=== PATIENT | male | born 1980 | race Caucasian/White ===

== ENCOUNTER 2018-05-30 16:13 | Emergency (ER) | payer OTHER ==
[2018-05-30] MEDS ORDERED: LORAZEPAM 2 MG INJ (16:54)
[2018-05-30] MEDS: LORAZEPAM 2 MG INJ IM (16:58)
[2018-05-30 17:52] LABS: ADD MAN DIFF? NO
[2018-05-30 17:56] LABS: BASOPHIL # 0.1 10^3/ul (0.0-0.1); BASOPHILS % 1.2 % (0.0-2.0); EOSINOPHILS # 0.1 10^3/ul (0.0-0.5); HEMATOCRIT 45.6 % (42.0-52.0); HEMOGLOBIN 15.8 g/dl (14.0-18.0); LYMPHOCYTES # 2.8 10^3/ul (0.8-2.9); MEAN CORPUSCULAR HEMOGLOBIN 29.3 pg (29.0-33.0); MEAN CORPUSCULAR HGB CONC 34.6 g/dl (32.0-37.0); MEAN CORPUSCULAR VOLUME 84.4 fl (82.0-101.0); MEAN PLATELET VOLUME 9.6 fl (7.4-10.4); MONOCYTE # 0.4 10^3/ul (0.3-0.9); MONOCYTES % 6.3 % (0.0-11.0); NEUTROPHIL # 2.6 10^3/ul (1.6-7.5); NEUTROPHILS % 43.3 % (39.0-77.0); PLATELET COUNT 438 10^3/UL (140-415)
[2018-05-30 17:56] LABS: WHITE BLOOD COUNT 5.9 10^3/ul (4.8-10.8)
[2018-05-30 18:29] LABS: ALANINE AMINOTRANSFERASE 28 IU/L (13-69); ALBUMIN 5.2 g/dl (3.3-4.9); ALKALINE PHOSPHATASE 105 IU/L (42-121); ANION GAP 18 (5-13); ASPARTATE AMINO TRANSFERASE 38 IU/L (15-46); BILIRUBIN,INDIRECT 0.5 mg/dl (0-1.1); BILIRUBIN,TOTAL 0.5 mg/dl (0.2-1.3); BLOOD UREA NITROGEN 8 mg/dl (7-20); CALCIUM 9.8 mg/dl (8.4-10.2); CARBON DIOXIDE 22 mmol/L (21-31); CHLORIDE 107 mmol/L (97-110); CREATININE 0.73 mg/dl (0.61-1.24); Estimated GFR > 60 mL/min (>60); GLUCOSE 110 mg/dl (70-220); POTASSIUM 3.8 mmol/L (3.5-5.1); SODIUM 147 mmol/L (135-144); TOTAL PROTEIN 9.9 g/dl (6.1-8.1)
[2018-05-30 18:31] LABS: ACETAMINOPHEN < 10.0 ug/ml (10.0-30.0)
[2018-05-30 18:32] LABS: SALICYLATE < 1.0 mg/dl (5.0-30.0)
[2018-05-30 19:00] LABS: ADD UMIC YES; UR ASCORBIC ACID NEGATIVE (NEGATIVE); UR BACTERIA FEW /HPF (NONE SEEN); UR BILIRUBIN (Dip) NEGATIVE (NEGATIVE); UR BLOOD (Dip) 1+ mg/dL (NEGATIVE); UR CLARITY SLIGHTLY CLOUDY (CLEAR); UR COLOR YELLOW (YELLOW); UR GLUCOSE (Dip) NEGATIVE (NEGATIVE); UR KETONES (Dip) NEGATIVE (NEGATIVE); UR LEUKOCYTE ESTERASE (Dip) NEGATIVE Leu/ul (NEGATIVE); UR MUCUS MANY /HPF (NONE SEEN); UR NITRITE (Dip) NEGATIVE (NEGATIVE); UR RBC 1 /HPF (0-5); UR SPECIFIC GRAVITY (Dip) 1.013 (1.003-1.030); UR TOTAL PROTEIN (Dip) NEGATIVE (NEGATIVE); UR UROBILINOGEN (Dip) NEGATIVE (NEGATIVE); UR WBC 2 /HPF (0-5)
[2018-05-30 19:33] LABS: AMPHETAMINE/METHAMPHETAMINE Negative (NEGATIVE); BARBITURATES Negative (NEGATIVE); COCAINE Negative (NEGATIVE)
[2018-05-30 19:35] LABS: CANNABINOIDS Positive (NEGATIVE)
[2018-05-30 19:39] LABS: OPIATES Positive (NEGATIVE)
[2018-05-30] MEDS ORDERED: DIPHENHYDRAMINE 50 MG INJ (19:41)
[2018-05-30] MEDS ORDERED: HALOPERIDOL 5 MG INJ (19:41)
[2018-05-30] MEDS: HALOPERIDOL 5 MG INJ IM (19:43)
[2018-05-30 19:51] LABS: BENZODIAZEPINES Negative (NEGATIVE)
[2018-05-30] MEDS: ONDANSETRON (ODT) 4 MG TAB ODT (23:59)
[2018-05-30] MEDS: LIDOCAINE/MYLANTA 40 ML BTL PO (23:59)
[2018-05-31] MEDS: LORAZEPAM 2 MG INJ IM (00:06)
[2018-05-31] MEDS: HALOPERIDOL 5 MG INJ IM (00:07)
[2018-05-31] MEDS: OLANZAPINE 5 MG TAB PO (10:52)
[2018-05-31] MEDS: ONDANSETRON (ODT) 4 MG TAB ODT (11:00)
[2018-05-31] MEDS: IBUPROFEN 600 MG TAB PO (19:41)
[2018-05-31] MEDS: LORAZEPAM 1 MG TAB PO (19:49)
[2018-06-01] MEDS: HALOPERIDOL 5 MG INJ IM (01:54)
[2018-06-01] MEDS: HYDROCODONE/APAP (10/325) TAB PO (03:13)
[2018-06-01] MEDS: LORAZEPAM 1 MG TAB PO (07:58)
== END 2018-06-01 08:18 | disposition home or self-care (01) ==
LOC: E/R 06-01 08:18
DX: F10.920 Alcohol use, unspecified with intoxication, uncomplicated (principal); R40.2142 Coma scale, eyes open, spontaneous, at arrival to emergency department; F20.9 Schizophrenia, unspecified; R45.851 Suicidal ideations; R40.2252 Coma scale, best verbal response, oriented, at arrival to emergency department; R40.2362 Coma scale, best motor response, obeys commands, at arrival to emergency department
CPT/HCPCS: 80053; 80307; 81001; 85025; 96372; 99284-25